=== PATIENT | female | born 1985 | race Caucasian/White ===

== ENCOUNTER 2019-11-22 06:58 | Emergency (ER) | payer BC ==
[~2019-11-22] VITALS: Ht 175.3 cm; Wt 54.4 kg
--- NOTE | 2019-11-22 07:13 | NUR ---
PER DR ROUSE, PT IS NOT ALLERGIC TO VICODIN AND CODEINE
[2019-11-22] MEDS ORDERED: MORPHINE SULFATE INJ 4 MG/ML DISP.SYRIN ONE (07:15)
[2019-11-22] MEDS ORDERED: ONDANSETRON HCL/PF 4 MG/2 ML VIAL ONE ×2 (07:15→08:27)
[2019-11-22] MEDS ORDERED: KETOROLAC TROMETHAMINE INJ 30 MG/ML VIAL ONE (07:15)
--- NOTE | 2019-11-22 07:15 | NUR ---
CAME TO THE ER C/O R SIDED FLANK PAIN +NAUSEA +FREQUENT URINATION W/ BURNING SENSATION SINCE 0200. PATIENT A/OX4, BREATHING EVEN AND UNLABORED, NO SOB NOTED, NEEDS ATTENDED. ASSISTED TO RESTROOM.
--- NOTE | 2019-11-22 07:25 | NUR ---
PATIENT UNABLE TO GIVE A URINE SAMPLE AT THIS TIME. IV LINE ESTABLISHED, BLOOD DRAWN AND SENT TO LAB.
[2019-11-22] MEDS ORDERED: MORPHINE SULFATE INJ 2 MG/ML DISP.SYRIN IV ONE (07:30)
[2019-11-22] MEDS ORDERED: KETOROLAC TROMETHAMINE INJ 30 MG/ML VIAL IV ONE (07:30)
[2019-11-22] MEDS ORDERED: ONDANSETRON HCL/PF 4 MG/2 ML VIAL IVP ONE ×2 (07:30→08:30)
[2019-11-22] MEDS ORDERED: IV NS 0.9% 1,000 ML BAG IV ONE (07:30)
--- NOTE | 2019-11-22 07:30 | NUR ---
VERIFIED WITH DR. ROUSE IF OK TO GIVE TORADOL WITHOUT A TEST, PER , ITS OK TO GIVE AT THIS TIME.
[2019-11-22 07:38] LABS: BASOPHILS # (AUTO) 0.1 /CMM (0.0-0.2); BASOPHILS % (AUTO) 0.8 % (0.0-2.0); EOSINOPHILS % (AUTO) 0.9 % (0.0-6.0); HEMATOCRIT 39 % (33-45); LYMPHOCYTES # (AUTO) 2.6 /CMM (0.8-4.8); LYMPHOCYTES % (AUTO) 27.7 % (20.0-44.0); MEAN CORPUSCULAR HGB CONC 33 g/dl (31.0-36.0); MEAN CORPUSCULAR VOLUME 95 fL (82-100); MONOCYTES # (AUTO) 0.3 /CMM (0.1-1.30); MONOCYTES % (AUTO) 3.6 % (2.0-12.0); NEUTROPHILS # (AUTO) 6.2 /CMM (1.8-8.9); PLATELET COUNT (AUTO) 296 /CMM (150-450); RED BLOOD CELL COUNT(AUTO) 4.16 MIL/uL (4.0-5.2); WHITE BLOOD COUNT (AUTO) 9.3 K/uL (4.3-11.0)
--- NOTE | 2019-11-22 07:45 | NUR ---
PATIENT'S PAIN HAS IMPROVED. VITALS STABLE.
[2019-11-22 07:54] LABS: CALCIUM, SERUM 9.2 mg/dL (8.5-10.1); CREATININE 0.8 mg/dL (0.6-1.3); POTASSIUM 3.3 mmol/L (3.5-5.1)
[2019-11-22 08:00] LABS: ALBUMIN 4.5 g/dL (3.4-5.0); BILIRUBIN,DIRECT 0.2 mg/dL (0.0-0.2); BILIRUBIN,TOTAL 0.5 mg/dL (0.2-1.0)
--- NOTE | 2019-11-22 08:10 | NUR ---
URINE SENT TO LAB.
[2019-11-22] MEDS ORDERED: HYDROMORPHONE 1 MG/1 ML DISP.SYRIN ONE (08:28)
[2019-11-22 08:29] LABS: APPEARANCE,URINE Clear (CLEAR); BILIRUBIN,URINE SMALL (NEGATIVE); BLOOD, URINE Large Ery/uL (NEGATIVE); COLOR,URINE Yellow (YELLOW); KETONES,URINE 40 (NEGATIVE); LEUKOCYTE ESTERASE ,URINE Negative (NEGATIVE); NITRITE, URINE Negative (NEGATIVE); PROTEIN,URINE Trace mg/dl (NEGATIVE); UGLUCOSE Negative (NEGATIVE); UROBILINOGEN,URINE 0.2 EU/dL (0.2)
[2019-11-22] MEDS ORDERED: HYDROMORPHONE INJ 2 MG/ML DISP.SYRIN IV ONE (08:30)
[2019-11-22 08:33] LABS: BACTERIA,URINE Few /HPF (None Seen); SQUAMOUS EPITHELIAL CELL,UR Few /HPF (None Seen)
--- NOTE | 2019-11-22 10:15 | NUR ---
PATIENT A/OX4, BREATHING EVEN AND UNLABORED, NO SOB NOTED, NEEDS ATTENDED, AMBULATORY WITH STEADY GAIT. PICKED UP BY . IV removed. Catheter intact and site benign. Pressure and 4x4 applied to site. No bleeding noted. Patient discharged to home in stable condition. Written and verbal after care instructions given. Patient verbalizes understanding of instruction.
[2019-11-22 10:36] VITALS: BP 139/79
== END 2019-11-22 10:36 | disposition home or self-care (01) ==
LOC: ER 06:58
DX: N13.2 Hydronephrosis with renal and ureteral calculous obstruction (principal); Z91.011 Allergy to milk products
CPT/HCPCS: 36415; 74176; 80048; 80076; 81001; 83690; 84703; 85025; 96361; 96374; 96375; 96376; 99284; J1170; J1885; J2270; J2405 ×2; J7030; 81000-TC